=== PATIENT | female | born 1945 | race Caucasian/White ===

== ENCOUNTER 2020-05-05 16:22 | Inpatient (IN) | payer MEDICARE, BC ==
[2020-05-05] VITALS (7 sets, daily range): BP systolic 84–114; BP diastolic 37–74
[~2020-05-05] VITALS: Ht 165.1 cm; Wt 54.9 kg
--- NOTE | 2020-05-05 16:56 | NUR ---
PATIENT WAS MSE BY DR CBAELLO IN ROOM 04B.
[2020-05-05] MEDS ORDERED: IV NORMAL SALINE 500 ML BAG IV ONE (17:00)
[2020-05-05] MEDS ORDERED: CHOL10002 PO (17:12)
[2020-05-05] MEDS ORDERED: MEMA10TA PO (17:12)
[2020-05-05] MEDS ORDERED: LACT10SO PO (17:12)
[2020-05-05] MEDS ORDERED: ANAS1TAB50 PO (17:12)
[2020-05-05] MEDS ORDERED: ACET-2154 PO (17:12)
[2020-05-05] MEDS ORDERED: ACET-73 PO (17:12)
[2020-05-05] MEDS ORDERED: LEVO112T2 PO (17:12)
[2020-05-05] MEDS ORDERED: CRAN425C6 PO (17:12)
[2020-05-05] MEDS ORDERED: CRAN3875 PO (17:12)
[2020-05-05] MEDS ORDERED: DOCU-141 PO (17:12)
[2020-05-05] MEDS ORDERED: TRAM50TA2 PO (17:12)
[2020-05-05] MEDS ORDERED: ASCO500C6 PO (17:12)
[2020-05-05] MEDS ORDERED: DONE5TAB34 PO (17:12)
[2020-05-05 17:35] LABS: ABG BASE EXCESS -3.5 mmol/L; ABG HCO3 17.5 mmol/L; ABG PCO2 24.7 mmHg (35.0-45.0); ABG PH 7.469 (7.350-7.450); ABG PO2 88.4 mmHg (75.0-100.0); ABG SITE RIGHT BRACHIAL; ABG TOTAL HEMOGLOBIN 19.5 G/dL (12.0-16.0); COHb 0.3 % (0.5-1.5); MetHb 0.5 % (0.0-1.5); O2Hb 96.5 % (94.0-97.0)
--- NOTE | 2020-05-05 17:35 | NUR ---
DID NOT PUT PT ON BIPAP PER MD VERBAL ORDER. ABG RESULTS SHOW NO INDICATION FOR BIPAP. PT REMAINS ON 15Lpm NON-REBREATHER.
[2020-05-05 18:01] LABS: BASOPHILS % (AUTO) 0.1 % (0.0-2.0); HEMATOCRIT 58.3 % (31.2-41.9); HEMOGLOBIN 18.7 g/dL (10.9-14.3); LYMPHOCYTES # (AUTO) 0.4 K/uL (20.0-40.0); MEAN CORPUSCULAR HEMOGLOBIN 31.2 uug (24.7-32.8); MEAN CORPUSCULAR HGB CONC 32 g/dL (32.3-35.6); MEAN CORPUSCULAR VOLUME 97.1 fL (75.5-95.3); MONOCYTES % (AUTO) 4.5 % (0.0-11.0); NEUTROPHILS # (AUTO) 20.6 K/uL (1.8-8.9); NEUTROPHILS % (AUTO) 93.4 % (38.5-71.5); PLATELET COUNT (AUTO) 219 K/uL (179-408); RED BLOOD CELL COUNT(AUTO) 6.01 MIL/uL (3.63-4.92); WHITE BLOOD COUNT (AUTO) 22.1 K/uL (3.8-11.8)
[2020-05-05 18:09] LABS: ALANINE AMINOTRANSFERASE 88 U/L (14-59); ALKALINE PHOSPHATASE 244 U/L (50-136); ASPARTATE AMINOTRANSFERASE 94 U/L (15-37); BILIRUBIN,DIRECT 0.5 mg/dL (0.0-0.2); BILIRUBIN,TOTAL 1.1 mg/dL (0.2-1.0); CARBON DIOXIDE 19 mmol/L (21-32); CREATININE 3.5 mg/dL (0.6-1.3); GLUCOSE 165 mg/dL (74-106); POTASSIUM 4.9 mmol/L (3.5-5.1); TOTAL PROTEIN, SERUM 7.2 g/dL (6.4-8.2)
[2020-05-05] MEDS ORDERED: AZITHROMYCIN IV 500 MG in IV DEXTROSE 5% 250 ML IV ONE (18:15)
[2020-05-05] MEDS ORDERED: CEFTRIAXONE 2 G in IV DEXTROSE 5% 100 ML IV ONE (18:15)
[2020-05-05 18:26] LABS: CHLORIDE 134 mmol/L (98-107); UREA NITROGEN, BLOOD 147 mg/dL (7-18)
[2020-05-05] MEDS ORDERED: AZITHROMYCIN IV 500 MG in IV DEXTROSE 5% 250 ML IV SCH ×2 (19:00→21:30)
[2020-05-05] MEDS ORDERED: ACETAMINOPHEN 325 MG TABLET PO PRN (19:00)
[2020-05-05] MEDS ORDERED: [UNRECOGNIZED DRUG - OTHER] IV ONE (19:00)
[2020-05-05] MEDS ORDERED: ACETAMINOPHEN 650 MG SUPP.RECT RC PRN (19:00)
[2020-05-05] MEDS ORDERED: IV D5W 1000ML 1,000 ML IV PRN (19:00)
[2020-05-05] MEDS ORDERED: ALBUTEROL SULFATE 8 GM HFA.AER.AD IH PRN (19:00)
[2020-05-05] MEDS ORDERED: ONDANSETRON 4 MG/2 ML VIAL IV PRN (19:00)
[2020-05-05] MEDS ORDERED: TRAMADOL HCL 50 MG TABLET PO PRN (19:00)
--- NOTE | 2020-05-05 19:50 | NUR ---
SPOKE WITH Alise Camarillo NP. PATIENT OK TO ADMIT CCU.
--- NOTE | 2020-05-05 20:28 | NUR ---
Admitted a 75 y.o female patient from ER DX: COVID19, SEPSIS. Patient non verbal, eyes open, tracks, grimaces to pain but doesn't follow any commands. Turned and repositioned. With bloody semi formed stools. Skin care provided.
[2020-05-05] MEDS ORDERED: DONEPEZIL 5 MG TABLET PO SCH (21:00)
--- NOTE | 2020-05-05 21:00 | NUR ---
LAC IV leaking; new IV started to RFA.
--- NOTE | 2020-05-05 21:10 | NUR ---
Spoke to [facility] WINE CELLAR WORKER re: patient's condition including rectal bleed and L foot cyanosis/mottling. Orders received.
[2020-05-05] MEDS ORDERED: NOREPINEPHRINE BITARTRATE 8 MG in IV NORMAL SALINE 242 ML IV PRN (21:15)
[2020-05-05] MEDS ORDERED: PANTOPRAZOLE SODIUM 40 MG VIAL IV SCH (21:30)
[2020-05-05] MEDS ORDERED: CEFTRIAXONE 1 G VIAL ONE ×2 (21:34→22:17)
[2020-05-05] MEDS ORDERED: AZITHROMYCIN 500MG/ D5W 250ML IVPB **ER PYXIS ONLY IV ONE (21:35)
--- NOTE | 2020-05-05 22:25 | NUR ---
Seen by Alise ULRICH. Plan of care discussed.
[2020-05-05] MEDS: DEXAMETHASONE SOD PHOSPHATE 4 MG INJ IV SCH (22:48)
[2020-05-05] MEDS: IV NS 1000 ML 1,000 ML IV PRN (23:08)
[2020-05-05 23:22] LABS: ABG HCO3 15.6 mmol/L; ABG PCO2 23.5 mmHg (35.0-45.0); ABG PH 7.441 (7.350-7.450); ABG PO2 139.6 mmHg (75.0-100.0); ABG SITE RIGHT BRACHIAL; ABG TOTAL HEMOGLOBIN 16.7 G/dL (12.0-16.0); COHb 0.7 % (0.5-1.5); MetHb 0.3 % (0.0-1.5); O2Hb 97.9 % (94.0-97.0)
--- NOTE | 2020-05-05 23:30 | NUR ---
ABG results called to Alise Camarillo; order received to titrate O2 to sat above 92%.
[2020-05-06] VITALS (25 sets, daily range): BP systolic 90–150; BP diastolic 62–87
[2020-05-06 05:18] LABS: BASOPHILS % (AUTO) 0.1 % (0.0-2.0); HEMATOCRIT 52.8 % (31.2-41.9); HEMOGLOBIN 16.9 g/dL (10.9-14.3); LYMPHOCYTES # (AUTO) 0.6 K/uL (20.0-40.0); LYMPHOCYTES % (AUTO) 3.1 % (20.5-51.5); MEAN CORPUSCULAR HEMOGLOBIN 31.7 uug (24.7-32.8); MEAN CORPUSCULAR HGB CONC 32 g/dL (32.3-35.6); MEAN CORPUSCULAR VOLUME 98.8 fL (75.5-95.3); MONOCYTES # (AUTO) 0.4 K/uL (2.0-10.0); MONOCYTES % (AUTO) 1.9 % (0.0-11.0); NEUTROPHILS # (AUTO) 19.1 K/uL (1.8-8.9); NEUTROPHILS % (AUTO) 94.9 % (38.5-71.5); PLATELET COUNT (AUTO) 155 K/uL (179-408); RED BLOOD CELL COUNT(AUTO) 5.34 MIL/uL (3.63-4.92); WHITE BLOOD COUNT (AUTO) 20.1 K/uL (3.8-11.8)
[2020-05-06 05:34] LABS: ALANINE AMINOTRANSFERASE 73 U/L (14-59); ALKALINE PHOSPHATASE 270 U/L (50-136); ASPARTATE AMINOTRANSFERASE 85 U/L (15-37); BILIRUBIN,TOTAL 0.9 mg/dL (0.2-1.0); CARBON DIOXIDE 22 mmol/L (21-32); CREATININE 3.5 mg/dL (0.6-1.3); GLUCOSE 170 mg/dL (74-106); POTASSIUM 4.6 mmol/L (3.5-5.1)
[2020-05-06 05:44] LABS: CHLORIDE 131 mmol/L (98-107)
[2020-05-06 05:46] LABS: UREA NITROGEN, BLOOD 146 mg/dL (7-18)
--- NOTE | 2020-05-06 05:55 | NUR ---
critical sodium 170, bun 146, chloride 131.
[2020-05-06] MEDS: IV NS 1000 ML 1,000 ML IV PRN ×2 (06:44→17:09)
--- NOTE | 2020-05-06 07:25 | NUR ---
Handoff patient on face mask with liter flow of 15 per minute. Moans, opens eyes to pain/verbal stimuli. Patient repositioning. hall monitor shows normal sinus rhythm. Patient vital signs are stable. Ehsan Adhikari RN
[2020-05-06] MEDS ORDERED: CEFTRIAXONE 1 G in IV DEXTROSE 5% 50 ML IV SCH ×2 (09:00→22:30)
[2020-05-06] MEDS ORDERED: Medication Not On Formulary EA (Cranberry Extract (Cranberry) 425 MG) PO SCH (09:00)
[2020-05-06] MEDS: MEMANTINE HCL 10 MG TABLET PO SCH (09:00)
[2020-05-06] MEDS: ANASTROZOLE 1 MG TABLET PO SCH (09:00)
[2020-05-06] MEDS ORDERED: FAMOTIDINE. 20 MG/2 ML VIAL IV SCH (09:00)
[2020-05-06] MEDS: DOCUSATE SODIUM 100 MG CAPSULE PO SCH (09:00)
[2020-05-06] MEDS ORDERED: Medication Not On Formulary EA (Cran/Vitc/Mannose/Inulin/Brom (Uti-Stat Liquid) 30 MG) PO SCH (09:00)
[2020-05-06] MEDS: ASCORBIC ACID 500 MG TABLET PO SCH (09:00)
[2020-05-06] MEDS: CHOLECALCIFEROL 1,000 UNIT TABLET PO SCH (09:00)
[2020-05-06] MEDS: LEVOTHYROXINE SODIUM 112 MCG TABLET PO SCH (09:00)
--- NOTE | 2020-05-06 09:20 | NUR ---
Patient repositioning, skin care, monique catheter care. Patient normal sinus rhythm on the monitor. Vital signs are stable. Ehsan Adhikari RN
[2020-05-06] MEDS: FAMOTIDINE. 20 MG/2 ML VIAL IV SCH (09:24)
[2020-05-06] MEDS: DEXAMETHASONE SOD PHOSPHATE 4 MG INJ IV SCH (09:24)
--- NOTE | 2020-05-06 10:41 | NUR ---
Spoke with Christopher () on the telephone. okay for intubation.
[2020-05-06 11:28] LABS: ABG BASE EXCESS -5.8 mmol/L; ABG HCO3 17.2 mmol/L; ABG PH 7.405 (7.350-7.450); ABG PO2 68.8 mmHg (75.0-100.0); ABG SITE RIGHT RADIAL; ABG TOTAL HEMOGLOBIN 16.6 G/dL (12.0-16.0); COHb 1.1 % (0.5-1.5); O2Hb 92.3 % (94.0-97.0)
[2020-05-06] MEDS: CEFEPIME HCL 2 G in IV DEXTROSE 5% 100 ML IV SCH (12:08)
--- NOTE | 2020-05-06 12:45 | NUR ---
Oxygen saturation monitor change. New site on left earlobe. Patient repositioning. Continues to moan is response to pain/verbal stimuli. medical reviewer shows sinus rhythm. Ehsan Adhikari RN
[2020-05-06] MEDS ORDERED: VANCOMYCIN IV 750 MG in IV DEXTROSE 5% 250 ML IV SCH (13:00)
--- NOTE | 2020-05-06 15:16 | NUR ---
Dr. Dennis here to see pt. Full report given. New orders received.
--- NOTE | 2020-05-06 15:32 | NUR ---
Oral care to remove white coating from the oral cavity. Patient tolerates activity well. Doctor Dennis orders for further fluconazole antibiotic for this infection. Ehsan Adhikari RN
[2020-05-06] MEDS: FLUCONAZOLE 200 MG/NS 100ML IV 100 MG in PREMIXED 1 EACH IV SCH (19:11)
[2020-05-06] MEDS: HEPARIN SODIUM,PORCINE 5,000 UNITS/ML VIAL SQ SCH (20:40)
[2020-05-06 22:41] LABS: ALANINE AMINOTRANSFERASE 66 U/L (14-59); ALKALINE PHOSPHATASE 329 U/L (50-136); ASPARTATE AMINOTRANSFERASE 75 U/L (15-37); BILIRUBIN,TOTAL 0.8 mg/dL (0.2-1.0); CARBON DIOXIDE 17 mmol/L (21-32); CREATININE 3.3 mg/dL (0.6-1.3); GLUCOSE 141 mg/dL (74-106); MAGNESIUM 3.4 mg/dL (1.8-2.4); PHOSPHOROUS 4.7 mg/dL (2.5-4.9); TOTAL PROTEIN, SERUM 5.7 g/dL (6.4-8.2)
[2020-05-06 22:43] LABS: CHLORIDE 133 mmol/L (98-107); UREA NITROGEN, BLOOD 158 mg/dL (7-18)
--- NOTE | 2020-05-06 22:53 | NUR ---
NOTIFY DR. STALLINGS NA 168, CHLORIDE 133, BUN 158. HAS NO NEW ORDER.
[2020-05-07] VITALS (24 sets, daily range): BP systolic 76–160; BP diastolic 68–111
[2020-05-07] MEDS: IV NS 1000 ML 1,000 ML IV PRN ×3 (01:53→21:05)
[2020-05-07 05:30] LABS: BASOPHILS % (AUTO) 0.2 % (0.0-2.0); HEMATOCRIT 47.3 % (31.2-41.9); HEMOGLOBIN 15.3 g/dL (10.9-14.3); LYMPHOCYTES # (AUTO) 0.3 K/uL (20.0-40.0); LYMPHOCYTES % (AUTO) 1.1 % (20.5-51.5); MEAN CORPUSCULAR HEMOGLOBIN 31.8 uug (24.7-32.8); MEAN CORPUSCULAR HGB CONC 32 g/dL (32.3-35.6); MEAN CORPUSCULAR VOLUME 98.1 fL (75.5-95.3); MONOCYTES # (AUTO) 0.4 K/uL (2.0-10.0); MONOCYTES % (AUTO) 1.3 % (0.0-11.0); NEUTROPHILS % (AUTO) 97.4 % (38.5-71.5); PLATELET COUNT (AUTO) 125 K/uL (179-408); RED BLOOD CELL COUNT(AUTO) 4.82 MIL/uL (3.63-4.92)
[2020-05-07 05:42] LABS: MAGNESIUM 3.4 mg/dL (1.8-2.4); PHOSPHOROUS 4.7 mg/dL (2.5-4.9)
[2020-05-07 05:50] LABS: CARBON DIOXIDE 18 mmol/L (21-32); CREATININE 3.2 mg/dL (0.6-1.3); GLUCOSE 140 mg/dL (74-106); POTASSIUM 4.5 mmol/L (3.5-5.1)
[2020-05-07 06:07] LABS: CHLORIDE 130 mmol/L (98-107); UREA NITROGEN, BLOOD 165 mg/dL (7-18); WHITE BLOOD COUNT (AUTO) 30.8 K/uL (3.8-11.8)
[2020-05-07] MEDS: LEVOTHYROXINE SODIUM 112 MCG TABLET PO SCH (06:49)
--- NOTE | 2020-05-07 07:35 | NUR ---
PATIENT NON VERBAL, CONT ON NON REBREATHER MASK SAT 88 TO 100%, DR TOPETE AWARE OF PATIENT SATURATION, REMAIN ON DROPLET PRECAUTION, DE LEON CATH PATENT, CONT TO MONITOR.
[2020-05-07] MEDS: DEXAMETHASONE SOD PHOSPHATE 4 MG INJ IV SCH (08:16)
[2020-05-07] MEDS: HEPARIN SODIUM,PORCINE 5,000 UNITS/ML VIAL SQ SCH ×2 (08:16→21:21)
[2020-05-07] MEDS: FAMOTIDINE. 20 MG/2 ML VIAL IV SCH (08:17)
[2020-05-07] MEDS: DOCUSATE SODIUM 100 MG CAPSULE PO SCH (08:18)
[2020-05-07] MEDS: MEMANTINE HCL 10 MG TABLET PO SCH (08:18)
[2020-05-07] MEDS: ANASTROZOLE 1 MG TABLET PO SCH (08:18)
[2020-05-07] MEDS: ASCORBIC ACID 500 MG TABLET PO SCH (08:18)
[2020-05-07] MEDS: CHOLECALCIFEROL 1,000 UNIT TABLET PO SCH (08:18)
--- NOTE | 2020-05-07 10:25 | NUR ---
WOUND CARE CONSULT: REVIEWED CHART, NURSING DOCUMENTATION AND PHOTO WHICH INDICATES SACRAL DEEP TISSUE INJURY IN EVOLUTION, PRESENT ON ADMISSION. RECOMMENDATIONS MADE FOR SKIN PROTECTION. FEET NOTED TO HAVE DUSKY COLOR. PT IS ON FIRST STEP [facility] AIRSS MATTRESS. MD IN AGREEMENT WITH PLAN OF CARE.
[2020-05-07] MEDS ORDERED: Z GUARD REMEDY PASTE 57 GM TUBE TOP PRN (10:30)
[2020-05-07] MEDS: CEFEPIME HCL 2 G in IV DEXTROSE 5% 100 ML IV SCH (11:27)
--- NOTE | 2020-05-07 11:45 | NUR ---
PT.WAS SEEN BY MADISON TOPETE MD
[2020-05-07 13:23] LABS: BAND % (MANUAL) 5 % (0-10); LYMPHOCYTES % (MANUAL) 7 % (20-40); MONOCYTES % (MANUAL) 1 % (2-10); NEUTROPHILS % (MANUAL) 87 % (42-75)
--- NOTE | 2020-05-07 15:57 | NUR ---
PT.WAS SEEN BY SIDNEY BARRON NP
[2020-05-07] MEDS: FLUCONAZOLE 200 MG/NS 100ML IV 100 MG in PREMIXED 1 EACH IV SCH (16:27)
--- NOTE | 2020-05-07 18:30 | NUR ---
NO CHANGES IN PT.CONDITION,NO S/S OF ACUTE DISTRESS.
--- NOTE | 2020-05-07 19:15 | NUR ---
receive patient labored breathing , on 100 % NRB , bilateral feet blackish , pulses weak cool to touch , ns at 125 ml , responsive to deep pain with pain withdrawal iv and monique intact
[2020-05-07] MEDS: Z GUARD REMEDY PASTE 57 GM TUBE TOP SCH (21:22)
--- NOTE | 2020-05-07 23:45 | NUR ---
PATIENT WAS VERY VERY LABORED BREATHING KUSSMAUL BREATHING dr falcon was called and talked to dr gallego in ER , PATIENT WAS INTUBATED , CXR DONE , WAITING FOR PLACEMENT CHECKED RESULTS , AC 18 , TV 500 , P 5 FIO2 80 % ,
[2020-05-08] VITALS (24 sets, daily range): BP systolic 108–167; BP diastolic 45–81
[2020-05-08] MEDS ORDERED: PROPOFOL 50 ML IV PRN (00:15)
[2020-05-08] MEDS ORDERED: ETOMIDATE 20 MG/10 ML VIAL IV ONE (00:30)
[2020-05-08] MEDS ORDERED: SUCCINYLCHOLINE CHLORIDE 200 MG/10 ML VIAL IV ONE (00:30)
--- NOTE | 2020-05-08 00:30 | NUR ---
dr patiño notified of patient condition intubated , no orders received
--- NOTE | 2020-05-08 00:45 | NUR ---
ricky falcon updated of pateint's condition and iv fluid running , no orders received
[2020-05-08] MEDS: VANCOMYCIN IV 750 MG in IV DEXTROSE 5% 250 ML IV SCH (01:24)
[2020-05-08 06:04] LABS: ABG BASE EXCESS -13.2 mmol/L; ABG HCO3 13.2 mmol/L; ABG PCO2 32.3 mmHg (35.0-45.0); ABG PH 7.229 (7.350-7.450); ABG PO2 214.3 mmHg (75.0-100.0); ABG SITE LEFT RADIAL; ABG TOTAL HEMOGLOBIN 13.7 G/dL (12.0-16.0); MetHb 0.1 % (0.0-1.5); O2Hb 98.4 % (94.0-97.0); VENT MODE VENT - A/C; VT, ABG 500 mL
[2020-05-08] MEDS: IV NS 1000 ML 1,000 ML IV PRN ×2 (06:28→16:12)
--- NOTE | 2020-05-08 06:45 | NUR ---
patient is still labored breathing , fio2 has been changed to 50 % , ns at 125 still running obtunded , no spontaneous eye opening , withdraws to deep pain
[2020-05-08] MEDS: LEVOTHYROXINE SODIUM 112 MCG TABLET PO SCH (06:57)
[2020-05-08 08:18] LABS: BASOPHILS # (AUTO) 0.1 K/uL (0.0-8.0); BASOPHILS % (AUTO) 0.2 % (0.0-2.0); HEMOGLOBIN 13.5 g/dL (10.9-14.3); LYMPHOCYTES # (AUTO) 0.3 K/uL (20.0-40.0); MEAN CORPUSCULAR HEMOGLOBIN 31.6 uug (24.7-32.8); MEAN CORPUSCULAR HGB CONC 32 g/dL (32.3-35.6); MEAN CORPUSCULAR VOLUME 98.2 fL (75.5-95.3); MONOCYTES # (AUTO) 0.7 K/uL (2.0-10.0); MONOCYTES % (AUTO) 2.1 % (0.0-11.0); NEUTROPHILS # (AUTO) 30.5 K/uL (1.8-8.9); NEUTROPHILS % (AUTO) 96.7 % (38.5-71.5); PLATELET COUNT (AUTO) 107 K/uL (179-408); RED BLOOD CELL COUNT(AUTO) 4.28 MIL/uL (3.63-4.92)
[2020-05-08] MEDS: DOCUSATE SODIUM 100 MG CAPSULE PO SCH (08:18)
[2020-05-08] MEDS: ANASTROZOLE 1 MG TABLET PO SCH (08:18)
[2020-05-08] MEDS: MEMANTINE HCL 10 MG TABLET PO SCH (08:18)
[2020-05-08 08:19] LABS: BILIRUBIN,DIRECT 0.3 mg/dL (0.0-0.2); BILIRUBIN,TOTAL 0.6 mg/dL (0.2-1.0); CARBON DIOXIDE 16 mmol/L (21-32); CREATININE 2.9 mg/dL (0.6-1.3); GLUCOSE 170 mg/dL (74-106); PHOSPHOROUS 6.4 mg/dL (2.5-4.9); POTASSIUM 5.3 mmol/L (3.5-5.1); TOTAL PROTEIN, SERUM 5.2 g/dL (6.4-8.2)
[2020-05-08] MEDS: ASCORBIC ACID 500 MG TABLET PO SCH (08:19)
[2020-05-08] MEDS: CHOLECALCIFEROL 1,000 UNIT TABLET PO SCH (08:19)
[2020-05-08] MEDS: DEXAMETHASONE SOD PHOSPHATE 4 MG INJ IV SCH (08:21)
[2020-05-08] MEDS: Z GUARD REMEDY PASTE 57 GM TUBE TOP SCH ×2 (08:22→20:54)
[2020-05-08] MEDS: FAMOTIDINE. 20 MG/2 ML VIAL IV SCH (08:22)
[2020-05-08 08:26] LABS: WHITE BLOOD COUNT (AUTO) 31.5 K/uL (3.8-11.8)
[2020-05-08] MEDS: HEPARIN SODIUM,PORCINE 5,000 UNITS/ML VIAL SQ SCH ×2 (08:26→20:53)
[2020-05-08 08:31] LABS: CHLORIDE 141 mmol/L (98-107); UREA NITROGEN, BLOOD 160 mg/dL (7-18)
[2020-05-08 08:32] LABS: MAGNESIUM 3.3 mg/dL (1.8-2.4)
[2020-05-08] MEDS: CEFEPIME HCL 2 G in IV DEXTROSE 5% 100 ML IV SCH (12:43)
[2020-05-08] MEDS ORDERED: FUROSEMIDE 40 MG/4 ML VIAL IV ONE (14:00)
--- NOTE | 2020-05-08 15:00 | NUR ---
ETT changed, blown cuff, no complications during change.. Addendum: 05/08/20 at 1744 by HERMILO CARLOS RT ETT changed with Rubia ROWAN
[2020-05-08] MEDS: PROPOFOL 100 ML IV PRN (15:28)
[2020-05-08 17:09] LABS: BAND % (MANUAL) 5 % (0-10); LYMPHOCYTES % (MANUAL) 3 % (20-40); MONOCYTES % (MANUAL) 1 % (2-10); NEUTROPHILS % (MANUAL) 91 % (42-75)
--- NOTE | 2020-05-08 17:38 | NUR ---
Received a call from [facility] spoke with Dr. Kirby, received a Chest Xray result with moderate to Large Right Pneumothorax
--- NOTE | 2020-05-08 17:40 | NUR ---
Called Dr. Oneill with Order to insert Chest Tube by ER .
--- NOTE | 2020-05-08 17:42 | NUR ---
Called Dr. Pardo and made aware of Order for Chest tube insertion by Dr. Oneill.
--- NOTE | 2020-05-08 17:50 | NUR ---
Called Dr. Pardo and gave RP Number( [phone]) Trent villarreal.
[2020-05-08] MEDS: FLUCONAZOLE 200 MG/NS 100ML IV 100 MG in PREMIXED 1 EACH IV SCH (18:07)
[2020-05-08] MEDS ORDERED: LIDOCAINE HCL 1% 20 ML VIAL ONE (18:23)
--- NOTE | 2020-05-08 18:30 | NUR ---
dr pathak in the unit from ER to place right upper chest tube. verified consent from doctor Nunez who spoke to the abd informed Huong via phone that chest tube to be placed.
--- NOTE | 2020-05-08 18:30 | NUR ---
lidocaine administered by ER doctor for chest tube insertion.
[2020-05-08] MEDS: IV LACTATED RINGERS SOLUTION 1,000 ML IV PRN (19:28)
--- NOTE | 2020-05-08 19:53 | NUR ---
radiology dr. olivares called to report slight reexpansion of the right lung but noted subcutanoues air and required to reposition. called ER physician and dr. pathak still in the hospital and reported that. dr pathak was to call radiology to verify repositioning.
[2020-05-09] VITALS (24 sets, daily range): BP systolic 120–167; BP diastolic 46–94
[2020-05-09] MEDS: IV LACTATED RINGERS SOLUTION 1,000 ML IV PRN ×2 (02:33→10:59)
[2020-05-09] MEDS: LEVOTHYROXINE SODIUM 112 MCG TABLET PO SCH (07:00)
[2020-05-09] MEDS ORDERED: ETOMIDATE 20 MG/10 ML VIAL IV ONE (07:34)
[2020-05-09] MEDS ORDERED: SUCCINYLCHOLINE CHLORIDE 200 MG/10 ML VIAL IV ONE (07:34)
[2020-05-09] MEDS: ANASTROZOLE 1 MG TABLET PO SCH (07:44)
[2020-05-09] MEDS: DOCUSATE SODIUM 100 MG CAPSULE PO SCH (07:44)
[2020-05-09] MEDS: MEMANTINE HCL 10 MG TABLET PO SCH (07:45)
[2020-05-09] MEDS: ASCORBIC ACID 500 MG TABLET PO SCH (07:45)
[2020-05-09] MEDS: CHOLECALCIFEROL 1,000 UNIT TABLET PO SCH (07:45)
[2020-05-09] MEDS: HEPARIN SODIUM,PORCINE 5,000 UNITS/ML VIAL SQ SCH ×2 (07:52→20:29)
[2020-05-09] MEDS: DEXAMETHASONE SOD PHOSPHATE 4 MG INJ IV SCH (07:53)
[2020-05-09] MEDS: FAMOTIDINE. 20 MG/2 ML VIAL IV SCH (07:53)
[2020-05-09] MEDS: Z GUARD REMEDY PASTE 57 GM TUBE TOP SCH ×2 (07:56→20:30)
[2020-05-09] MEDS: PROPOFOL 100 ML IV PRN (07:59)
[2020-05-09 08:00] LABS: ABG BASE EXCESS -11.5 mmol/L; ABG HCO3 14.4 mmol/L; ABG PCO2 32.8 mmHg (35.0-45.0); ABG PH 7.261 (7.350-7.450); ABG PO2 78.7 mmHg (75.0-100.0); ABG SITE LEFT RADIAL; ABG TOTAL HEMOGLOBIN 13.3 G/dL (12.0-16.0); COHb 1.4 % (0.5-1.5); MetHb 0.3 % (0.0-1.5); O2Hb 93.3 % (94.0-97.0); VENT MODE VENT - A/C; VT, ABG 500 mL
[2020-05-09] MEDS: CEFEPIME HCL 2 G in IV DEXTROSE 5% 100 ML IV SCH (12:08)
[2020-05-09] MEDS ORDERED: NORMAL SALINE IV PRN (13:45)
[2020-05-09] MEDS ORDERED: FUROSEMIDE 40 MG/4 ML VIAL IV ONE (13:45)
[2020-05-09] MEDS ORDERED: CISATRACURIUM BESYLATE IV PRN (13:45)
[2020-05-09] MEDS ORDERED: MIDAZOLAM HCL 50 MG in IV NORMAL SALINE 40 ML IV PRN (13:45)
[2020-05-09] MEDS ORDERED: IV D5W 1000ML 1,000 ML IV PRN (14:15)
[2020-05-09] MEDS: VANCOMYCIN IV 750 MG in IV DEXTROSE 5% 250 ML IV SCH (14:28)
[2020-05-09 14:30] LABS: ABG BASE EXCESS -10.3 mmol/L; ABG HCO3 14.4 mmol/L; ABG PCO2 28.9 mmHg (35.0-45.0); ABG PH 7.315 (7.350-7.450); ABG PO2 77.5 mmHg (75.0-100.0); ABG SITE RIGHT RADIAL; ABG TOTAL HEMOGLOBIN 13.2 G/dL (12.0-16.0); COHb 1.7 % (0.5-1.5); MetHb 0.3 % (0.0-1.5); VENT MODE VENT - A/C; VT, ABG 400 mL
[2020-05-09] MEDS: FLUCONAZOLE 200 MG/NS 100ML IV 100 MG in PREMIXED 1 EACH IV SCH (17:30)
[2020-05-09 19:09] LABS: CARBON DIOXIDE 17 mmol/L (21-32); CHLORIDE 116 mmol/L (98-107); CREATININE 2.3 mg/dL (0.6-1.3); POTASSIUM 4.7 mmol/L (3.5-5.1)
[2020-05-09 19:17] LABS: GLUCOSE 671 mg/dL (74-106); UREA NITROGEN, BLOOD 139 mg/dL (7-18)
--- NOTE | 2020-05-09 19:30 | NUR ---
Report received. Patient COVID +, orally intubated and to mechanical ventilator with continuous Diprivan drip at 10 mcg/kg/min. RR above 30's. Assessment done. Addendum: 05/10/20 at 0328 by GERSON WEISS RN Amended: Links added.
--- NOTE | 2020-05-09 20:10 | NUR ---
Spoke with Dr. Lyons re: abnormal labs. Orders received.
[2020-05-09] MEDS ORDERED: INSULIN REGULAR, HUMAN 300 UNIT/3 ML VIAL SQ PRN (20:15)
[2020-05-09] MEDS: BLOOD SUGAR DIAGNOSTIC 1 EACH STRIP VI SCH ×2 (20:27→23:24)
[2020-05-09] MEDS: IV 1/2NS 1000 ML 1,000 ML IV PRN (21:07)
[2020-05-10] VITALS (35 sets, daily range): BP systolic 109–148; BP diastolic 42–83
[2020-05-10] MEDS: PROPOFOL 100 ML IV PRN ×2 (05:04→17:51)
[2020-05-10] MEDS: BLOOD SUGAR DIAGNOSTIC 1 EACH STRIP VI SCH ×3 (06:02→17:26)
[2020-05-10 06:13] LABS: CARBON DIOXIDE 17 mmol/L (21-32); CREATININE 1.9 mg/dL (0.6-1.3); GLUCOSE 113 mg/dL (74-106); VANCOMYCIN,RANDOM 18.5 ug/mL (18.0-26.0)
[2020-05-10] MEDS: IV 1/2NS 1000 ML 1,000 ML IV PRN ×2 (06:23→18:47)
[2020-05-10 06:55] LABS: UREA NITROGEN, BLOOD 126 mg/dL (7-18)
--- NOTE | 2020-05-10 06:57 | NUR ---
Remains sedated with Diprivan drip at 25 mcg/kg/min. O2 sat maintaining above 94% on current vent settings. BPs stable
[2020-05-10] MEDS: LEVOTHYROXINE SODIUM 112 MCG TABLET PO SCH (07:00)
[2020-05-10 07:20] LABS: CHLORIDE 116 mmol/L (98-107); POTASSIUM 4.2 mmol/L (3.5-5.1)
[2020-05-10] MEDS: DEXAMETHASONE SOD PHOSPHATE 4 MG INJ IV SCH (08:14)
[2020-05-10] MEDS: FAMOTIDINE. 20 MG/2 ML VIAL IV SCH (08:15)
[2020-05-10] MEDS: HEPARIN SODIUM,PORCINE 5,000 UNITS/ML VIAL SQ SCH ×2 (08:34→20:36)
[2020-05-10 09:00] LABS: ABG HCO3 16.8 mmol/L; ABG PH 7.287 (7.350-7.450); ABG PO2 71.5 mmHg (75.0-100.0); ABG SITE LEFT RADIAL; ABG TOTAL HEMOGLOBIN 12.5 G/dL (12.0-16.0); COHb 1.4 % (0.5-1.5); MetHb 0.3 % (0.0-1.5); O2Hb 92.8 % (94.0-97.0); VENT MODE VENT - A/C 30; VT, ABG 350 mL
[2020-05-10] MEDS: Z GUARD REMEDY PASTE 57 GM TUBE TOP SCH ×2 (09:00→21:16)
[2020-05-10] MEDS: MEMANTINE HCL 10 MG TABLET PO SCH (09:00)
[2020-05-10 11:50] LABS: BASOPHILS # (AUTO) 0.1 K/uL (0.0-8.0); BASOPHILS % (AUTO) 0.4 % (0.0-2.0); EOSINOPHILS % (AUTO) 0.2 % (0.0-7.0); HEMATOCRIT 39.2 % (31.2-41.9); LYMPHOCYTES # (AUTO) 0.4 K/uL (20.0-40.0); LYMPHOCYTES % (AUTO) 1.3 % (20.5-51.5); MEAN CORPUSCULAR HEMOGLOBIN 31.5 uug (24.7-32.8); MEAN CORPUSCULAR HGB CONC 31 g/dL (32.3-35.6); MEAN CORPUSCULAR VOLUME 102.7 fL (75.5-95.3); MONOCYTES # (AUTO) 0.1 K/uL (2.0-10.0); MONOCYTES % (AUTO) 0.5 % (0.0-11.0); NEUTROPHILS % (AUTO) 97.6 % (38.5-71.5); PLATELET COUNT (AUTO) 61 K/uL (179-408); RED BLOOD CELL COUNT(AUTO) 3.81 MIL/uL (3.63-4.92); WHITE BLOOD COUNT (AUTO) 27.6 K/uL (3.8-11.8)
[2020-05-10] MEDS: CEFEPIME HCL 2 G in IV DEXTROSE 5% 100 ML IV SCH (13:03)
[2020-05-10] MEDS: LEVOTHYROXINE SODIUM 100 MCG VIAL IV SCH (14:00)
[2020-05-10] MEDS: FLUCONAZOLE 200 MG/NS 100ML IV 100 MG in PREMIXED 1 EACH IV SCH (17:08)
--- NOTE | 2020-05-10 19:00 | NUR ---
Received patient from AM nurse. COVID +. Safety measures in place. Orally intubated - Vent settings at - TV: 350 - Fio2: 40% - PEEP: 3 - AC: 30. Pertinent information received from AM nurse. 0.45 NS running at 100cc/hr. Propofol running at 20mcg/kg/min. Labs reviewed and noted. Midline patent and intact. Will monitor and assess patient.
[2020-05-10 22:57] LABS: BAND % (MANUAL) 2 % (0-10); LYMPHOCYTES % (MANUAL) 3 % (20-40); MONOCYTES % (MANUAL) 6 % (2-10); NEUTROPHILS % (MANUAL) 89 % (42-75)
[2020-05-11] VITALS (22 sets, daily range): BP systolic 70–116; BP diastolic 45–73
[2020-05-11] MEDS: BLOOD SUGAR DIAGNOSTIC 1 EACH STRIP VI SCH ×2 (00:38→06:05)
--- NOTE | 2020-05-11 00:49 | NUR ---
Patient remains sedated on Diprivan drip at 25mcg/kg/min. O2 saturation at 100% - afebrile - VSS. No signs of distress. Will continue to monitor and assess.
[2020-05-11] MEDS: IV 1/2NS 1000 ML 1,000 ML IV PRN (04:02)
[2020-05-11] MEDS: PROPOFOL 100 ML IV PRN (05:17)
[2020-05-11] MEDS: DEXTROSE 50% 50 ML DISP.SYRIN IV PRN ×2 (05:59→06:38)
--- NOTE | 2020-05-11 06:50 | NUR ---
Upon assessment of patients blood sugar, it was noted to be 46 -- 50ml of Dextrose 50% were given. Reassessment 1 hour later it was noted to be 56. Dr. Quiles made aware and gave order to administer another 50% Dextrose and to let AM Doctor reassess. Orders were followed and will be passed on. Will endorse to oncoming nurse.
--- NOTE | 2020-05-11 06:54 | NUR ---
Patient being handed off to AM nurse. VSS. No distress. Safety measures in place. Vent Settings: 7.5 ET Tube - 25cm at the lip - TV: 350 - Fio2: 40% - PEEP: 3 - AC: 30. Diprovan infusing at 25mcg/kg/min. 0.45 NS running at 100cc/hr. All medications given promptly. Sinus Rhythm on the monitor. 400ml urine output in monique catheter. Midline patent. Will endorse all pertinent information to AM nurse.
--- NOTE | 2020-05-11 07:30 | NUR ---
patient in uncontrolle afib. stat ekg done and called cardiology for orders.
[2020-05-11] MEDS: MEMANTINE HCL 10 MG TABLET PO SCH (07:37)
[2020-05-11] MEDS: HEPARIN SODIUM,PORCINE 5,000 UNITS/ML VIAL SQ SCH (07:40)
--- NOTE | 2020-05-11 07:40 | NUR ---
heparin held. reported from last night that there was 3 bloody stools.
[2020-05-11] MEDS ORDERED: AMIODARONE HCL IV 450 MG in IV DEXTROSE 5% 250 ML IV PRN ×2 (08:00→09:00)
--- NOTE | 2020-05-11 08:00 | NUR ---
please review order history for cardiology orders
[2020-05-11 08:37] LABS: ABG BASE EXCESS -14.5 mmol/L; ABG HCO3 13.7 mmol/L; ABG PCO2 40.9 mmHg (35.0-45.0); ABG PH 7.143 (7.350-7.450); ABG PO2 80.1 mmHg (75.0-100.0); ABG SITE LEFT RADIAL; COHb 1.7 % (0.5-1.5); MetHb 0.1 % (0.0-1.5); O2Hb 93.3 % (94.0-97.0); VENT MODE VENT - A/C; VT, ABG 350 mL
[2020-05-11] MEDS ORDERED: AMIODARONE HCL IV 150 MG in IV DEXTROSE 5% 100 ML IV ONE (09:00)
--- NOTE | 2020-05-11 09:30 | NUR ---
x1 bowel movement dark in color almost black.
[2020-05-11] MEDS ORDERED: FLUCONAZOLE 200 MG/NS 100ML IV 100 MG in PREMIXED 1 EACH IV SCH (09:45)
[2020-05-11] MEDS: DEXAMETHASONE SOD PHOSPHATE 4 MG INJ IV SCH (09:45)
[2020-05-11] MEDS: FAMOTIDINE. 20 MG/2 ML VIAL IV SCH (09:48)
[2020-05-11] MEDS: LEVOTHYROXINE SODIUM 100 MCG VIAL IV SCH (09:48)
[2020-05-11] MEDS: Z GUARD REMEDY PASTE 57 GM TUBE TOP SCH (09:54)
--- NOTE | 2020-05-11 11:02 | NUR ---
spoke to after he talked to doctor hensley and he agrees for terminal extubation and comfort measures. Dr. hensley will be placing orders.
[2020-05-11] MEDS ORDERED: MORPHINE SULFATE PF IV DRIP 100 MG in IV DEXTROSE 5% 96 ML IV PRN (11:15)
[2020-05-11 11:56] LABS: ALANINE AMINOTRANSFERASE 166 U/L (14-59); ALKALINE PHOSPHATASE 344 U/L (50-136); ASPARTATE AMINOTRANSFERASE 340 U/L (15-37); BILIRUBIN,TOTAL 1.2 mg/dL (0.2-1.0); CARBON DIOXIDE 13 mmol/L (21-32); CREATININE 2.2 mg/dL (0.6-1.3); MAGNESIUM 2.9 mg/dL (1.8-2.4); PHOSPHOROUS 6.1 mg/dL (2.5-4.9); POTASSIUM 5.5 mmol/L (3.5-5.1); TOTAL PROTEIN, SERUM 3.5 g/dL (6.4-8.2)
[2020-05-11 12:26] LABS: CHOLESTEROL 100 mg/dL (<200); HDL CHOLESTEROL 10 mg/dL (40-60); TRIGLYCERIDES 736 MG/DL (30-150)
[2020-05-11 12:50] LABS: GLUCOSE 313 mg/dL (74-106)
[2020-05-11 12:51] LABS: CHLORIDE 130 mmol/L (98-107)
[2020-05-11 12:52] LABS: BASOPHILS # (AUTO) 0.1 K/uL (0.0-8.0); BASOPHILS % (AUTO) 0.6 % (0.0-2.0); EOSINOPHILS # (AUTO) 0.1 K/uL (0.0-0.7); EOSINOPHILS % (AUTO) 0.6 % (0.0-7.0); HEMATOCRIT 29.6 % (31.2-41.9); HEMOGLOBIN 8.6 g/dL (10.9-14.3); LYMPHOCYTES # (AUTO) 0.6 K/uL (20.0-40.0); LYMPHOCYTES % (AUTO) 2.5 % (20.5-51.5); MEAN CORPUSCULAR HEMOGLOBIN 31.1 uug (24.7-32.8); MEAN CORPUSCULAR HGB CONC 29 g/dL (32.3-35.6); MONOCYTES # (AUTO) 0.3 K/uL (2.0-10.0); MONOCYTES % (AUTO) 1.1 % (0.0-11.0); NEUTROPHILS # (AUTO) 21.3 K/uL (1.8-8.9); NEUTROPHILS % (AUTO) 95.2 % (38.5-71.5); PLATELET COUNT (AUTO) 71 K/uL (179-408); RED BLOOD CELL COUNT(AUTO) 2.76 MIL/uL (3.63-4.92); UREA NITROGEN, BLOOD 148 mg/dL (7-18); WHITE BLOOD COUNT (AUTO) 22.4 K/uL (3.8-11.8)
--- NOTE | 2020-05-11 13:20 | NUR ---
patient was extubated at this time and morphine drip was also started and all other medications discontinued.
[2020-05-11 13:26] LABS: THYROID STIMULATING HORMONE 2.296 mIU/mL (0.358-3.740)
[2020-05-11 18:49] LABS: BAND % (MANUAL) 2 % (0-10); LYMPHOCYTES % (MANUAL) 3 % (20-40); MONOCYTES % (MANUAL) 2 % (2-10); NEUTROPHILS % (MANUAL) 93 % (42-75)
--- NOTE | 2020-05-11 19:00 | NUR ---
PATIENT BROUGHT DOWN FROM CCU -- NO TRANSFER ORDER IN CHART or EMR --- SEPARATOR TENDER MADE AWARE. Addendum: 05/11/20 at 2112 by CARLOS ALBERTO VALLECILLO RN WRONG TIME
--- NOTE | 2020-05-11 19:20 | NUR ---
report given to sydnee on the 3rd floor. morphine running at 7mg/hr
--- NOTE | 2020-05-11 19:20 | NUR ---
PATIENT BROUGHT DOWN FROM CCU -- NO TRANSFER ORDER IN CHART OR EMR --- CANVAS BASTER JUMPBASTING MADE AWARE.
--- NOTE | 2020-05-11 21:00 | NUR ---
Patient at this time. Confirmed by myself and RN Viola Peña. MD Koffi Mclean notified. Christopher Newman also notified and made aware. Patient had DNR status.
--- NOTE | 2020-05-11 21:30 | NUR ---
Post mortem care done. All procedures carried out by protocol. All persons notified. Patients has an accepting facility by the name of [facility] - [address] [place], [address] - [phone]. They were notified and will be picking patient up "within 2 hours".
--- NOTE | 2020-05-11 21:40 | NUR ---
[facility] notified per protocol.
--- NOTE | 2020-05-12 01:59 | NUR ---
Still waiting on patients preferred mortuary to come and picker packer patient.
== END 2020-05-12 02:45 | disposition expired | DRG 871 ==
LOC: ER 16:26 → CCU 20:04 → MEDSURG3 05-11 19:00
PROVIDERS: ADMIT Nurse Practitioner Acute Care; ATTEND Internal Medicine
PROC: 5A1945Z Respiratory Ventilation, 24-96 Consecutive Hours (ICD-10-PCS; principal; 2020-05-08)
PROC: 0BH17EZ Insertion of Endotracheal Airway into Trachea, Via Natural or Artificial Opening (ICD-10-PCS; 2020-05-08)
PROC: 0W9930Z Drainage of Right Pleural Cavity with Drainage Device, Percutaneous Approach (ICD-10-PCS; 2020-05-08)
PROC: 05H533Z Insertion of Infusion Device into Right Subclavian Vein, Percutaneous Approach (ICD-10-PCS; 2020-05-09)
DX: A41.89 Other specified sepsis (principal); U07.1 COVID-19; J12.89 Other viral pneumonia; R65.21 Severe sepsis with septic shock; J96.01 Acute respiratory failure with hypoxia; G92 Toxic encephalopathy; N17.0 Acute kidney failure with tubular necrosis; J93.9 Pneumothorax, unspecified; E87.2 Acidosis; E44.0 Moderate protein-calorie malnutrition; E87.0 Hyperosmolality and hypernatremia; J90 Pleural effusion, not elsewhere classified; B37.0 Candidal stomatitis; Z51.5 Encounter for palliative care; Z66 Do not resuscitate; D69.6 Thrombocytopenia, unspecified; E03.9 Hypothyroidism, unspecified; E86.0 Dehydration; I48.91 Unspecified atrial fibrillation; K21.9 Gastro-esophageal reflux disease without esophagitis; Z85.3 Personal history of malignant neoplasm of breast; Z88.2 Allergy status to sulfonamides; Z68.20 Body mass index [BMI] 20.0-20.9, adult; N13.9 Obstructive and reflux uropathy, unspecified; N18.9 Chronic kidney disease, unspecified; E87.8 Other disorders of electrolyte and fluid balance, not elsewhere classified; F03.90 Unspecified dementia, unspecified severity, without behavioral disturbance, psychotic disturbance, mood disturbance, and anxiety; I73.9 Peripheral vascular disease, unspecified
CPT/HCPCS: 36415; 36600; 51702; 70030-TC; 71045; 83605; 83615; 83735; 84100; 84443; 85025; 85730; 86140; 87040; 87070; 93005; 94002; 94003; A4217; A4663; G0378; J0282; J0330; J0456; J0692; J0696; J1100; J1450; J1644; J1815; J1940; J2274; J3370; J3490; J3535; J7030; J7040; J7060; J7070; J7120; U0003